=== PATIENT | male | born 1970 | race Caucasian/White ===

== ENCOUNTER → 2016-10-02 | Outpatient (CLI) | payer OTHER | LOC: KOH-I 09-27 09:30 | DX: M54.2 Cervicalgia (principal); M25.512 Pain in left shoulder; M54.12 Radiculopathy, cervical region; M50.321 Other cervical disc degeneration at C4-C5 level; M50.21 Other cervical disc displacement, high cervical region | CPT/HCPCS: 72141; Q0163 ==

== ENCOUNTER → 2021-08-28 | Outpatient (CLI) | payer OTHER ==
[~2021-08-28] MED LIST: BACTRIM DS TAB1 EACH PO; PYRIDIUM200 MG PO
== END ==
LOC: RAD 15:13
DX: M54.50 Low back pain, unspecified (principal); G89.29 Other chronic pain; E11.65 Type 2 diabetes mellitus with hyperglycemia; F41.9 Anxiety disorder, unspecified; M47.812 Spondylosis without myelopathy or radiculopathy, cervical region; M47.814 Spondylosis without myelopathy or radiculopathy, thoracic region
CPT/HCPCS: 72050; 72070; 72110

== ENCOUNTER 2021-09-26 00:22 | Emergency (ER) | payer OTHER ==
[2021-09-26 01:28] LABS: HEMOGLOBIN 13.8 gm/dl (14.0-17.5); RED BLOOD COUNT 4.51 M/UL (4.20-5.50); WHITE BLOOD COUNT 6.6 K/UL (4.5-11.0)
[2021-09-26 01:42] LABS: BUN/CREATININE RATIO 15 (0-10)
== END 2021-09-26 03:50 | disposition home or self-care (01) ==
LOC: ER1 00:22
PROVIDERS: Family Medicine
DX: S40.261A Insect bite (nonvenomous) of right shoulder, initial encounter (principal); M54.9 Dorsalgia, unspecified; F17.200 Nicotine dependence, unspecified, uncomplicated; I10 Essential (primary) hypertension; E11.9 Type 2 diabetes mellitus without complications; Z79.4 Long term (current) use of insulin; W57.XXXA Bitten or stung by nonvenomous insect and other nonvenomous arthropods, initial encounter
CPT/HCPCS: 80053; 81001; 85025; 96372; 99283; J1885

== ENCOUNTER → 2021-10-02 | Outpatient (CLI) | payer OTHER | LOC: KOH-I 14:10 | DX: M54.16 Radiculopathy, lumbar region (principal); M54.50 Low back pain, unspecified; G89.29 Other chronic pain; I65.23 Occlusion and stenosis of bilateral carotid arteries | CPT/HCPCS: 93880 ==

== ENCOUNTER → 2021-12-07 | Outpatient (CLI) | payer OTHER | LOC: KOH-I 11-06 10:00 | DX: R74.8 Abnormal levels of other serum enzymes (principal); K75.81 Nonalcoholic steatohepatitis (NASH) | CPT/HCPCS: 72148; 76705 ==